=== PATIENT | female | born 1995 | race Caucasian/White ===

== ENCOUNTER → 2016-11-23 | Outpatient (CLI) | payer SELFPAY ==
[~2016-11-23] VITALS: Ht 165.1 cm; Wt 65.9 kg
[~2016-11-23] MED LIST: PREN1TAB25 PO
[2016-11-23 13:05] VITALS: BP 119/60
[2016-11-23 14:45] LABS: DAU SCREEN DISCLAIMER
[2016-11-23 16:35] LABS: HIV 1&2 ANTIBODY SCREEN Nonreactive (Nonreactive); HIV-1 p24 ANTIGEN Nonreactive (Nonreactive)
== END | disposition home or self-care (01) ==
LOC: LDOP 12:50
PROVIDERS: ATTEND Student in an Organized Health Care Education/Training Program
DX: O26.892 Other specified pregnancy related conditions, second trimester (principal); M54.9 Dorsalgia, unspecified; O46.92 Antepartum hemorrhage, unspecified, second trimester; O99.332 Smoking (tobacco) complicating pregnancy, second trimester; F17.200 Nicotine dependence, unspecified, uncomplicated; Z3A.21 21 weeks gestation of pregnancy
CPT/HCPCS: 36415; 76805; 80307; 81003; 85025; 86592; 86703; 86762; 86850; 86900; 87086; 87340; 87899; G0435